=== PATIENT | female | born 1940 | race Caucasian/White ===

== ENCOUNTER 2022-04-09 12:01 | Day surgery (SDC) | payer MEDICARE ==
[2022-04-05 15:09] VITALS: BMI 25.7
[2022-04-09] MEDS ORDERED: PROPOFOL 40 ML ONE (12:05)
[2022-04-09] MEDS ORDERED: Fentanyl 100 MCG/2 ML VIAL ONE (12:05)
== END 2022-04-09 14:20 | disposition home or self-care (01) ==
LOC: CSHSDC 12:01
PROVIDERS: ATTEND Internal Medicine Gastroenterology
PROC: 0DD68ZX Extraction of Stomach, Via Natural or Artificial Opening Endoscopic, Diagnostic (ICD-10-PCS; principal; 2022-04-09)
DX: K29.51 Unspecified chronic gastritis with bleeding (principal); B96.81 Helicobacter pylori [H. pylori] as the cause of diseases classified elsewhere; K31.811 Angiodysplasia of stomach and duodenum with bleeding; K25.4 Chronic or unspecified gastric ulcer with hemorrhage; K21.9 Gastro-esophageal reflux disease without esophagitis; E11.9 Type 2 diabetes mellitus without complications; K44.9 Diaphragmatic hernia without obstruction or gangrene; Q27.39 Arteriovenous malformation, other site; M06.9 Rheumatoid arthritis, unspecified; R63.0 Anorexia; Z68.26 Body mass index [BMI] 26.0-26.9, adult; Z79.84 Long term (current) use of oral hypoglycemic drugs; Z79.82 Long term (current) use of aspirin; Z79.899 Other long term (current) drug therapy
CPT/HCPCS: 88305; 88342; J2704; J3010

== ENCOUNTER 2022-08-06 19:56 | Emergency (ER) | payer MEDICARE ==
[2022-08-06 22:21] LABS: #Basophils 0.1 10x3/uL (0.0-0.2); #Eosinphils 0.1 10x3/uL (0.0-0.5); #Monocytes 0.8 10x3/uL (0.0-1.1); #Neutrophils 6.6 10x3/uL (1.5-8.4); %Basophils 0.8 % (0.0-2.0); %Eosinophils 1.3 % (0.0-6.0); %Lymphocytes 17.6 % (18.0-47.0); %Monocytes 8.4 % (0.0-10.0); %Neutrophils 71.6 % (40.0-75.0); Hemoglobin 12.3 g/dL (12.0-15.5); Mean Corpuscular Hemoglobin 23.3 pg (27.0-33.0); Mean Corpuscular Volume 72.7 fl (81.6-98.3); Mean Platelet Volume 10.1 fl (7.4-10.4); Platelet Count 209 10x3/uL (150-450); RBC Distribution Width 14.6 % (11.5-14.5); Red Blood Cell (RBC) Count 5.28 10x6/uL (3.90-5.03); White Blood Cell (WBC) Count 9.3 10x3/uL (3.5-10.5)
[2022-08-06 22:36] LABS: ALT (SGPT) 14 U/L (8-55); AST (SGOT) 29 U/L (5-34); Albumin 3.8 g/dL (3.4-4.8); Alkaline Phosphatase 62 U/L (40-110); Anion Gap 14 mmol/L (10-20); BUN (Urea Nitrogen) 23 mg/dL (9.8-20.1); Bilirubin, Total 0.3 mg/dL (0.2-1.2); Calc. Creatinine Clearance 0 mL/min (70-130); Calcium 8.9 mg/dL (7.8-10.44); Carbon Dioxide 26 mmol/L (23-31); Chloride 107 mmol/L (98-107); Estimated GFR 70; Globulin 3.4 g/dL (2.4-3.5); Glucose 94 mg/dL (83-110); Potassium 4.2 mmol/L (3.5-5.1); Protein, Total 7.2 g/dL (5.8-8.1); Sodium 143 mmol/L (136-145)
== END 2022-08-07 00:59 | disposition home or self-care (01) ==
LOC: CSHERS 19:56
DX: M54.31 Sciatica, right side (principal); E78.5 Hyperlipidemia, unspecified; E11.9 Type 2 diabetes mellitus without complications; Z79.82 Long term (current) use of aspirin; Z79.899 Other long term (current) drug therapy
CPT/HCPCS: 36415; 72131; 80053; 85025; 85379

== ENCOUNTER 2025-02-11 11:39 | Emergency (ER) | payer MEDICARE ==
[2025-02-11] MEDS ORDERED: Iopamidol 370 76% 100 ML VIAL ONE (12:15)
[2025-02-11 12:40] LABS: #Basophils 0.06 10x3/uL (0.0-0.2); #Eosinophils 0.19 10x3/uL (0.0-0.5); #Monocytes 0.74 10x3/uL (0.0-1.1); #Neutrophils 6.26 10x3/uL (1.5-8.4); %Basophils 0.7 % (0.0-2.0); %Eosinophils 2.1 % (0.0-6.0); %Lymphocytes 20.1 % (18.0-47.0); %Monocytes 8.1 % (0.0-10.0); %Neutrophils 68.7 % (40.0-75.0); Hematocrit 38.7 % (34.9-44.5); Hemoglobin 12.3 g/dL (12.0-15.5); Mean Corpuscular Hemoglobin 23.1 pg (27.0-33.0); Mean Corpuscular Volume 72.7 fL (81.6-98.3); Platelet Count 247 10x3/uL (150-450); Red Blood Cell (RBC) Count 5.32 10x6/uL (3.90-5.03); White Blood Cell (WBC) Count 9.11 10x3/uL (3.5-10.5)
[2025-02-11 12:53] LABS: Glucose, Urine (Dipstick) >=1000 mg/dL (Negative); Leukocyte 100 (Negative); Protein, Urine (Dipstick) Negative (Neg-Trace); Specific Gravity, Urine 1.010 (1.005-1.030)
[2025-02-11 12:59] LABS: ALT (SGPT) 8 U/L (Less than 34); AST (SGOT) 23 U/L (11-34); Albumin 3.5 g/dL (3.1-4.5); Alkaline Phosphatase 114 U/L (40-110); Anion Gap 16 mmol/L (10-20); BUN (Urea Nitrogen) 19 mg/dL (9.8-20.1); Bilirubin, Total 0.3 mg/dL (0.3-1.2); Calc. Creatinine Clearance 0 mL/min (70-130); Calcium 8.7 mg/dL (7.8-10.44); Carbon Dioxide 24 mmol/L (23-31); Chloride 108 mmol/L (98-107); Globulin 4.0 g/dL (2.4-3.5); Glucose 189 mg/dL (83-110); Potassium 4.7 mmol/L (3.5-5.1); Sodium 143 mmol/L (136-145)
[2025-02-11 13:03] LABS: Troponin I Less than 0.010 ng/mL (< 0.028)
[2025-02-11] MEDS ORDERED: niCARdipine 25 MG/10 ML SDV ONE (13:51)
[2025-02-11 13:58] LABS: INR-International Normal Ratio 1.0; PTT 25.7 sec (22.0-33.0); Prothrombin Time 11.0 sec (9.5-12.1)
[2025-02-11 14:01] LABS: CAUTI Indications for Culture Alt mental st,lethar; RBC/HPF None Seen HPF (0-3)
[2025-02-11 14:02] LABS: Bacteria/HPF Rare-Few HPF (None Seen)
[2025-02-11 14:03] LABS: Urine Culture Reflex Yes Yes
== END 2025-02-11 20:01 | disposition short-term general hospital (02) ==
LOC: CSHERS 11:39
DX: I60.9 Nontraumatic subarachnoid hemorrhage, unspecified (principal); R29.810 Facial weakness; R47.81 Slurred speech; R29.700 NIHSS score 0; E11.9 Type 2 diabetes mellitus without complications; E78.5 Hyperlipidemia, unspecified; Z79.82 Long term (current) use of aspirin; Z79.84 Long term (current) use of oral hypoglycemic drugs; Z79.899 Other long term (current) drug therapy
CPT/HCPCS: 70450; 70496; 70498; 71045; 80053; 81001; 84484; 85025; 85610; 85730; 87086; 93005; 94760; 96374; 99285; Q9967; 36415